=== PATIENT | female | born 1950 | race Caucasian/White ===

== ENCOUNTER 2017-01-14 10:53 | Day surgery (SDC) | payer OTHER ==
[2017-01-14] MEDS ORDERED: NS 1000 ML IV SCH (11:48)
[2017-01-14] MEDS ORDERED: ZETI10TA5 PO (12:10)
[2017-01-14] MEDS ORDERED: PREM0.3T2 PO (12:10)
[2017-01-14] MEDS ORDERED: REDPOW2 PO (12:10)
[2017-01-14] MEDS ORDERED: ASPI81TA5 PO (12:10)
[2017-01-14] MEDS ORDERED: BIOT10TA PO (12:10)
[2017-01-14] MEDS ORDERED: CENTCHW4 CHEW (12:10)
[2017-01-14] MEDS ORDERED: COQ-30CA2 PO (12:10)
[2017-01-14] MEDS ORDERED: ceFAZolin 2 GM PREMIX 50 ML IV SCH (13:15)
--- NOTE | 2017-01-14 13:31 | MA ---
cc: SILAS RIOS MD DATE 01/14/[address] Silas Rios PROCEDURE PERFORMED Loop recorder insertion PREPROCEDURE DIAGNOSIS Arrhythmia/concern for atrial fibrillation. POSTPROCEDURE DIAGNOSIS Successful loop recorder insertion. DESCRIPTION OF PROCEDURE The patient was brought to the DOC unit in the postabsorptive state. After informed consent was obtained, a [employer] LINQ loop recorder was inserted subcutaneously in the left chest. The patient tolerated the procedure without any apparent complications. Tachybrady pause and atrial fibrillation detection was enabled. The initial R-wave was 0.20 mV. The serial number was [id number]. Silas Rios MD SYLVIA/ANDERS /1:11 PM /1:27 PM
[2017-01-14] MEDS ORDERED: CHLORHEXIDINE GLUCONATE 2 % 1 PACK (2 CLOTHS) TOPICAL SCH (14:00)
[2017-01-14] MEDS ORDERED: POVIDONE IODINE 5% (ANTISEPSIS KIT) 4 APPLICATIONS EACH NARE SCH (14:00)
[2017-01-14] MEDS ORDERED: MUPIROCIN 2% OINT 1 APPLIC/GM SYR NASAL SCH (14:00)
== END 2017-01-14 14:30 | disposition home or self-care (01) ==
LOC: HDOC 10:53 → HDIC 10:54 → HDOC 14:30
PROVIDERS: ATTEND Nuclear Medicine Nuclear Cardiology
DX: I49.9 Cardiac arrhythmia, unspecified (principal); R00.2 Palpitations; I10 Essential (primary) hypertension; E78.5 Hyperlipidemia, unspecified; I34.1 Nonrheumatic mitral (valve) prolapse; Z79.82 Long term (current) use of aspirin; Z79.899 Other long term (current) drug therapy
CPT/HCPCS: 33282; C1764